=== PATIENT | female | born 1995 | race Caucasian/White ===

== ENCOUNTER 2017-01-04 18:35 | Emergency (ER) | payer SELFPAY ==
--- NOTE | 2017-01-04 19:16 | EDPHY ---
H & P Time Seen by Provider: 01/04/17 19:06 HPI/ROS: CHIEF COMPLAINT: Multiple abrasions HISTORY OF PRESENT ILLNESS: This patient is a homeless 21 year old female with history of lymphoma concerned regarding possible infection of multiple abrasions across her legs. These occurred through various means including scraping her ankle on her bike pedal, acidental stephens, and falls. She states she is unsure exactly what happened or when. A large abrasion to her left ankle, which is her primary concern, happened about one week ago. She has no further complaints at this time. Vaccinations are up to date, including tetanus. She denies fever, vomiting , or other associated symptoms. REVIEW OF SYSTEMS: A 10 point review of systems was performed and is negative with the exception of the elements mentioned in the history of present illness. Past Medical/Surgical History: Lymphoma Social History: Friend at bedside. Homeless. Smoking Status: Current every day smoker Physical Exam: General Appearance: Alert, disheveled Extremities: Right leg: Multiple abrasions, scabbed-over abrasion to anterior dye and knee Left leg: Abrasion to medial aspect of knee, abrasion to left heel. Multiple areas of old ecchymosis on shins. Upper extremities unremarkable. Vascular: normal cap refill Neuro: motor/sensory intact Constitutional: Initial Vital Signs Temperature (C) 36.7 C 01/04/17 18:39 Heart Rate 112 H 01/04/17 18:39 Respiratory Rate 20 01/04/17 18:39 Blood Pressure 121/76 H 01/04/17 18:39 O2 Sat (%) 95 01/04/17 18:39 O2 Delivery Mode Room Air Allergies/Adverse Reactions: amoxicillin Allergy (Verified 01/08/17 22:45) Penicillins Allergy (Verified 01/08/17 22:45) quetiapine [From Seroquel] Allergy (Verified 01/08/17 22:45) Home Medications: Medication Instructions Recorded Albuterol [Proventil Inhaler HFA 1 - 2 puffs IH Q4H #1 mdi 01/08/17 (*)] Guaifenesin [Guaifenesin ER] 600 mg PO BID #14 tab.er.12h 01/08/17 Medical Decision Making ED Course/Re-evaluation: 21 year old female presents with multiple healing abrasions to her lower extremities. No evidence of infection. Plan to clean her injury sites and apply topical antibiotic ointment. Also will have her take a shower in the ED. Plan to discharge home in good condition. Follow up and return precautions discussed. The patient is comfortable with this plan. Departure - Departure Disposition: Home, Routine, Self-Care Clinical Impression: Multiple abrasions Condition: Good Instructions: Abrasion (ED) Additional Instructions: 1. Wash with soap and water twice a day. Apply antibiotic ointment after cleaning. 2. Follow up with the [facility] for continued concerns. 3. Return to the Emergency Department if you develop increased redness, swelling , heat, or discharge in the area of your injuries or if you develop fever, vomiting, or other worsening of condition. The [facility] has walk-in appointments for the homeless at the following days/locations. No appointment is needed. Tuesday 8-10am @ [facility] 11AM-1PM @ [facility] Tuesday 8-10:30AM @ [facility] Tuesday 8-10 AM @ [facility] 2-4PM @ [facility] Tuesday 8-10AM @ [facility] Referrals: [facility],. [Clinic] - As per Instructions Report Scribed for: Kimberley Louise Report Scribed by: Светлана Dempsey Date of Report: 01/04/17 Time of Report: 19:21 Physician Review and Approval Statement: 01/04/17 19:21 Portions of this note were transcribed by a medical dir. I personally performed a history, physical exam, medical decision making, and confirmed accuracy of information the transcribed note.
[2017-01-04 20:14] VITALS: BP 106/83; PULSE 104; RESP 16; TEMP 99.9; O2SAT 96
== END 2017-01-04 20:15 | disposition home or self-care (01) ==
DX: S80.212A Abrasion, left knee, initial encounter (principal); S80.811A Abrasion, right lower leg, initial encounter; S80.211A Abrasion, right knee, initial encounter; S90.812A Abrasion, left foot, initial encounter; F17.200 Nicotine dependence, unspecified, uncomplicated; V18.9XXA Unspecified pedal cyclist injured in noncollision transport accident in traffic accident, initial encounter

== ENCOUNTER 2017-01-08 22:29 | Emergency (ER) | payer SELFPAY ==
--- NOTE | 2017-01-08 22:41 | EDPHY ---
H & P HPI/ROS: HPI CHIEF COMPLAINT: Cough HISTORY OF PRESENT ILLNESS: This patient is a 21-year-old female she is homeless, she smokes tobacco daily, she has recently here in the emergency room for skin lesions. She presents back by EMS for worsening cough which she states productive sputum of white clear sputum. No blood. She denies any chest pain. She states that she coughs this causes a great deal of diffuse body pain. No fever. She does smoke tobacco daily in tells me this makes her cough worse. She decided come back to the emergency room due to persistent cough. Past Medical History: Denies significant medical history except for lymphoma Past Surgical History: No recent surgical history Social History: Smokes tobacco daily, denies other illicit drugs, homeless Family History: Noncontributory ROS REVIEW OF SYSTEMS: A comprehensive 10 point review of systems is otherwise negative aside from elements mentioned in the history of present illness. Exam Constitutional appears nontoxic, triage nursing summary reviewed, vital signs reviewed, awake/alert. Vital signs are noted stable. Eyes normal conjunctivae and sclera, EOMI, PERRLA. HENT normal inspection, atraumatic, moist mucus membranes, no epistaxis, neck supple/ no meningismus, no raccoon eyes. Respiratory no respiratory distress clear to auscultation bilaterally, normal breath sounds, no respiratory distress, no wheezing. Cardiovascular rate normal, regular rhythm, no murmur, no edema, distal pulses normal. Gastrointestinal soft, non-tender, no rebound, no guarding, normal bowel sounds, no distension, no pulsatile mass. Genitourinary no CVA tenderness. Musculoskeletal no midline vertebral tenderness, full range of motion, no calf swelling, no tenderness of extremities, no meningismus, good pulses, neurovascularly intact. Skin multiple areas of skin excoriation on arms left shoulder, face no significant cellulitis appreciated, pink, warm, & dry, no rash, skin atraumatic. Neurologic awake, alert and oriented x 3, AAOx3, moves all 4 extremities equally, motor intact, sensory intact, CN II-XII intact, normal cerebellar, normal vision, normal speech. Psychiatric normal mood/affect. Heme/Lymph/Immune no lymphadenopathy. Differential Diagnosis: Includes but is not limited to in a particular order, bronchitis, viral pneumonia, bacterial pneumonia, pneumothorax, doubt pulmonary embolism given history and clinical picture. Medical Decision Making: Plan for this patient two view chest x-ray, BlakeoNeb breathing treatment, IV fluid bolus basic blood work. Re-evaluation: 2324: Re-evaluation at this time after DuoNeb breathing treatment. Patient feeling much improved. Clear lung sounds. No respiratory distress. No bronchitis, no wheezing on exam. Feeling much better. Chest x-ray has been reviewed shows bronchitis. No focal pneumonia. Blood work has been reviewed. Vital signs reviewed. Will allow her to go home on cough medicine guaifenesin and albuterol inhaler. She should refrain from smoking tobacco. She understands. She is agreeable this plan. She feels much better. Source: Patient, EMS - Medical/Surgical History Hx Asthma: Yes Hx Chronic Respiratory Disease: No Hx Diabetes: No Hx Cardiac Disease: No Hx Renal Disease: No Hx Cirrhosis: No Hx Alcoholism: No Hx HIV/AIDS: No Hx Splenectomy or Spleen Trauma: No Other PMH: lymphoma - Social History Smoking Status: Current every day smoker Constitutional: Initial Vital Signs Temperature (C) 36.8 C 01/08/17 22:45 Heart Rate 89 01/08/17 22:45 Respiratory Rate 18 01/08/17 22:45 Blood Pressure 96/58 L 01/08/17 22:45 O2 Sat (%) 92 01/08/17 22:45 O2 Delivery Mode Room Air Allergies/Adverse Reactions: amoxicillin Allergy (Verified 01/08/17 22:45) Penicillins Allergy (Verified 01/08/17 22:45) quetiapine [From Seroquel] Allergy (Verified 01/08/17 22:45) Home Medications: Medication Instructions Recorded Albuterol [Proventil Inhaler HFA 1 - 2 puffs IH Q4H #1 mdi 01/08/17 (*)] Guaifenesin [Guaifenesin ER] 600 mg PO BID #14 tab.er.12h 01/08/17 Medical Decision Making - Diagnostics Imaging Results: Imaging Impressions Chest X-Ray 01/08/17 22:46 Impression: Features are consistent with reactive airways' disease and/or a virally-mediated viral bronchitis, with no focal pneumonia identified. - Data Points Laboratory Results: Laboratory Results 01/08/17 22:50 01/08/17 22:50 01/08/17 01/08/17 22:50 22:50 WBC 9.15 10^3/uL 10^3/uL (3.80-9.50) RBC 3.54 10^6/uL L 10^6/uL (4.18-5.33) Hgb 10.9 g/dL L g/dL (12.6-16.3) Hct 31.9 % L % (38.0-47.0) MCV 90.1 fL fL (81.5-99.8) MCH 30.8 pg pg (27.9-34.1) MCHC 34.2 g/dL g/dL (32.4-36.7) RDW 14.3 % % (11.5-15.2) Plt Count 316 10^3/uL 10^3/uL (150-400) MPV 9.4 fL fL (8.7-11.7) Neut % (Auto) 75.8 % H % (39.3-74.2) Lymph % (Auto) 5.4 % L % (15.0-45.0) Harmon % (Auto) 16.7 % H % (4.5-13.0) Eos % (Auto) 0.3 % L % (0.6-7.6) Baso % (Auto) 0.7 % % (0.3-1.7) Nucleat RBC Rel Count 0.0 % % (0.0-0.2) Absolute Neuts (auto) 6.94 10^3/uL H 10^3/uL (1.70-6.50) Absolute Lymphs (auto) 0.49 10^3/uL L 10^3/uL (1.00-3.00) Absolute Monos (auto) 1.53 10^3/uL H 10^3/uL (0.30-0.80) Absolute Eos (auto) 0.03 10^3/uL 10^3/uL (0.03-0.40) Absolute Basos (auto) 0.06 10^3/uL 10^3/uL (0.02-0.10) Absolute Nucleated RBC 0.00 10^3/uL 10^3/uL (0-0.01) Immature Gran % 1.1 % % (0.0-1.1) Immature Gran # 0.10 10^3/uL 10^3/uL (0.00-0.10) Sodium 135 mEq/L mEq/L (134-144) Potassium 3.5 mEq/L mEq/L (3.5-5.2) Chloride 97 mEq/L mEq/L (97-110) Carbon Dioxide 25 mEq/l mEq/l (22-31) Anion Gap 13 mEq/L mEq/L (8-16) BUN 13 mg/dL mg/dL (7-23) Creatinine 0.7 mg/dL mg/dL (0.6-1.0) Estimated GFR > 60 Glucose 87 mg/dL mg/dL (70-100) Calcium 8.4 mg/dL L mg/dL (8.5-10.4) Medications Given: Discontinued Medications Albuterol/Ipratropium (Duoneb) 3 ml IH EDNOW ONE Stop: 01/08/17 22:47 Last Admin: 01/08/17 23:01 Dose: 3 ml Sodium Chloride (Ns) 1,000 mls @ 0 mls/hr IV ONCE ONE PRN Reason: Wide Open Stop: 01/08/17 22:47 Last Admin: 01/08/17 23:01 Dose: 1,000 mls Ibuprofen (Motrin) 800 mg PO EDNOW ONE Stop: 01/08/17 22:50 Last Admin: 01/08/17 23:01 Dose: 800 mg Departure - Departure Disposition: Home, Routine, Self-Care Clinical Impression: Bronchitis Condition: Good Instructions: Acute Bronchitis (ED) Additional Instructions: 1. Drink lots of fluids stay well-hydrated. 2. Return emergency room if you have any worsening symptoms questions or concerns. Referrals: NONE *PRIMARY CARE P,. [Primary Care Provider] - As per Instructions Prescriptions: Albuterol [Proventil Inhaler HFA (*)] 1 - 2 puffs IH Q4H #1 mdi Guaifenesin [Guaifenesin ER] 600 mg PO BID #14 tab.er.12h
[2017-01-08] MEDS ORDERED: IPRATROPIUM/ALBUTEROL 3 ML DEYVIAL IH ONE (22:46)
[2017-01-08] MEDS ORDERED: NS 1,000 ML IV ONE ×3 (22:46→23:30)
[2017-01-08] MEDS ORDERED: IBUPROFEN 200 MG TAB PO ONE (22:49)
[2017-01-08 23:00] LABS: % IMMATURE GRANULYOCYTES 1.1 % (0.0-1.1); ADD DIFF? NO; ADD MORPH? NO; ADD SCAN? NO; ATYPICAL LYMPHOCYTE FLAG 0 (0-99); FRAGMENT RBC FLAG 0 (0-99); HEMATOCRIT 31.9 % (38.0-47.0); HEMOGLOBIN 10.9 g/dL (12.6-16.3); LEFT SHIFT FLG 50 (0-99); LIPEMIA HEMOLYSIS FLAG 90 (0-99); MEAN CELL HEMOGLOBIN 30.8 pg (27.9-34.1); MEAN CELL HEMOGLOBIN CONCENTR. 34.2 g/dL (32.4-36.7); MEAN CELL VOLUME 90.1 fL (81.5-99.8); MEAN PLATELET VOLUME 9.4 fL (8.7-11.7); PLATELET CLUMPS FLAG 0 (0-99); PLATELET COUNT 316 10^3/uL (150-400); RED BLOOD CELL COUNT 3.54 10^6/uL (4.18-5.33); RED CELL DISTRIBUTION WIDTH 14.3 % (11.5-15.2)
[2017-01-08 23:18] LABS: ANION GAP 13 mEq/L (8-16); CALCIUM 8.4 mg/dL (8.5-10.4); CARBON DIOXIDE 25 mEq/l (22-31); CHLORIDE 97 mEq/L (97-110); CREATININE 0.7 mg/dL (0.6-1.0); GLOMERULAR FILTRATION RATE > 60; GLUCOSE 87 mg/dL (70-100); POTASSIUM 3.5 mEq/L (3.5-5.2); SODIUM 135 mEq/L (134-144)
[2017-01-09 00:53] VITALS: BP 111/74; PULSE 81; RESP 18; TEMP 98.2; O2SAT 96
== END 2017-01-09 00:52 | disposition home or self-care (01) ==
LOC: EDUNIT#
DX: J40 Bronchitis, not specified as acute or chronic (principal); F17.200 Nicotine dependence, unspecified, uncomplicated